=== PATIENT | male | born 1940 | race American Indian/Alaskan Native ===

== ENCOUNTER 2016-06-27 16:00 | Emergency (ER) | payer MEDICARE ==
[2016-06-27] MEDS ORDERED: ZOFRAN ODT ONE (17:46)
[2016-06-27] MEDS ORDERED: ZOFRAN ODT PO ONE (18:00)
[2016-06-27] MEDS: TYLENOL PO ONE (18:00)
[2016-06-27] MEDS ORDERED: ZOFRAN ODT PO PRN (18:00)
[2016-06-27 18:47] LABS: Hematocrit 44.1 % (35.5-45.6); Hemoglobin 13.9 gm/dl (11.8-15.2); Mean Corpuscular HGB Conc 32 % (32-34); Mean Corpuscular Hemoglobin 29 pg (28-32); Mean Corpuscular Volume 92 fl (84-94); Red Blood Count 4.81 M/mm3 (3.65-5.03); White Blood Count 20.8 K/mm3 (4.5-11.0)
[2016-06-27 18:48] LABS: Platelet Count 164 K/mm3 (140-440)
[2016-06-27 19:06] LABS: Anion Gap 20 mmol/L; BUN/Creatinine Ratio 10.76; Blood Urea Nitrogen 14 mg/dL (9-20); Calcium 8.5 mg/dL (8.4-10.2); Carbon Dioxide 20 mmol/L (22-30); Chloride 100.4 mmol/L (98-107); Glucose 132 mg/dL (75-100); Potassium 4.7 mmol/L (3.6-5.0); Sodium 136 mmol/L (137-145)
[2016-06-27 19:47] LABS: Basophils % (Manual) 0 % (0.0-1.8); Blastocytes % (Manual) 0 %; Eosinophils % (Manual) 0 % (0.0-4.3)
[2016-06-27 19:48] LABS: Ovalocytes Few
[2016-06-27 19:49] LABS: Diff Status Complete; Platelet Estimate Consistent w Auto
[2016-06-28 00:10] LABS: Bilirubin,Urine NEG (Negative); Blood,Urine MOD (Negative); Ketones,Urine TR mg/dL (Negative); Leukocyte Esterase,Urine NEG (Negative); Nitrite,Urine NEG (Negative); Urobilinogen,Urine < 2.0 mg/dL (<2.0)
--- NOTE | 2016-06-28 01:25 | Emergency Department Report ---
ED Abdominal Pain HPI - General Chief Complaint: Nausea/Vomiting/Diarrhea Stated Complaint: N/V Time Seen by Provider: 06/28/16 00:58 Source: patient Mode of arrival: Ambulatory Limitations: No Limitations - History of Present Illness Initial Comments: Patient is a 75-year-old male with a history of hypertension presenting to the ER with abdominal pain, fevers x 4 days and nausea, and vomiting for the past one day. As per patient and son at the bedside patient had a prostate biopsy to rule out prostate cancer 4 days ago. Pt also reports 1 day of intermittent CP in the left chest which started >8 hrs ago. Pt reports that has resolved. Otherwise no SOB, diarrhea, travel, rectal discharge, rectal pain, or sick contacts. Pt was given zofran while waiting to be seen and now has developed a pruitic rash over his abdomen and extremities. MD Complaint: abdominal pain, other (N/V) Severity scale (0 -10): 6 - Related Data Home Medications Medication Instructions Recorded Confirmed Last Taken Aspirin 81 mg PO DAILY 04/05/15 04/05/15 04/02/15 81 MG Lipase/Protease/Amylase [Pancreaze 1 each PO TID 04/06/15 04/06/15 04/02/15 4,200 Unit] 1 EACH Metformin HCl [Glucophage] 1,000 mg PO BID 04/06/15 04/06/15 04/02/15 1000 MG Pioglitazone HCl 15 mg PO QDAY 04/06/15 04/06/15 04/02/15 15 MG Pravastatin Sodium [Pravastatin] 40 mg PO QHS 04/06/15 04/06/15 04/02/15 40 MG Ranitidine HCl [Zantac 150 MG TAB] 150 mg PO BID 04/06/15 04/06/15 04/02/15 150 MG Previous Rx's Medication Instructions Recorded Last Taken Type Carvedilol [Coreg] 25 mg PO QDAY #90 tablet 07/01/13 04/02/15 Rx 25 MG amLODIPine [Norvasc] 5 mg PO DAILY #90 tab 07/01/13 04/02/15 Rx 5 MG diphenhydrAMINE [Benadryl CAP] 25 mg PO Q6HR PRN #12 capsule 06/28/16 Unknown Rx predniSONE [Deltasone] 50 mg PO QDAY #5 tab 06/28/16 Unknown Rx Allergies Allergy/AdvReac Type Severity Reaction Status Date / Time No Known Allergies Allergy Verified 06/28/13 07:27 ED Review of Systems ROS: Stated complaint: N/V Other details as noted in HPI Comment: All other systems reviewed and negative ED Past Medical Hx - Past Medical History Hx Hypertension: Yes Additional medical history: "fast heartbeat". 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" - Social History Smoking Status: Former Smoker Substance Use Type: None - Medications Home Medications: Home Medications Medication Instructions Recorded Confirmed Last Taken Type Carvedilol [Coreg] 25 mg PO QDAY #90 tablet 07/01/13 04/05/15 04/02/15 Rx 25 MG amLODIPine [Norvasc] 5 mg PO DAILY #90 tab 07/01/13 04/05/15 04/02/15 Rx 5 MG Aspirin 81 mg PO DAILY 04/05/15 04/05/15 04/02/15 History 81 MG Lipase/Protease/Amylase [Pancreaze 1 each PO TID 04/06/15 04/06/15 04/02/15 History 4,200 Unit] 1 EACH Metformin HCl [Glucophage] 1,000 mg PO BID 04/06/15 04/06/15 04/02/15 History 1000 MG Pioglitazone HCl 15 mg PO QDAY 04/06/15 04/06/15 04/02/15 History 15 MG Pravastatin Sodium [Pravastatin] 40 mg PO QHS 04/06/15 04/06/15 04/02/15 History 40 MG Ranitidine HCl [Zantac 150 MG TAB] 150 mg PO BID 04/06/15 04/06/15 04/02/15 History 150 MG diphenhydrAMINE [Benadryl CAP] 25 mg PO Q6HR PRN #12 capsule 06/28/16 Unknown Rx predniSONE [Deltasone] 50 mg PO QDAY #5 tab 06/28/16 Unknown Rx ED Physical Exam - General Limitations: No Limitations General appearance: alert, in no apparent distress - Head Head exam: Present: atraumatic, normocephalic - Eye Eye exam: Present: normal appearance - ENT ENT exam: Present: mucous membranes moist - Neck Neck exam: Present: normal inspection - Respiratory Respiratory exam: Present: normal lung sounds bilaterally. Absent: respiratory distress - Cardiovascular Cardiovascular Exam: Present: regular rate, normal rhythm. Absent: systolic murmur, diastolic murmur, rubs, gallop - GI/Abdominal GI/Abdominal exam: Present: soft, normal bowel sounds. Absent: distended, tenderness, guarding, rebound - Rectal Rectal exam: Present: normal inspection, normal rectal tone - Extremities Exam Extremities exam: Present: normal inspection - Back Exam Back exam: Present: normal inspection - Neurological Exam Neurological exam: Present: alert, oriented X3 - Psychiatric Psychiatric exam: Present: normal affect, normal mood - Skin Skin exam: Present: warm, dry, intact, rash (puritic rash to abdomen and extremities likely secondary to zofran) ED Course Vital Signs 06/27/16 06/28/16 06/28/16 17:42 00:26 02:24 Temperature 101.2 F H 99.5 F Pulse Rate 97 H 105 H Respiratory 16 18 Rate Blood Pressure 131/80 136/72 Blood Pressure [Left] O2 Sat by Pulse 100 97 95 Oximetry 06/28/16 06/28/16 06:17 06:51 Temperature 98.6 F Pulse Rate 80 71 Respiratory 16 17 Rate Blood Pressure Blood Pressure 117/57 135/78 [Left] O2 Sat by Pulse 100 99 Oximetry ED Medical Decision Making - Lab Data Result diagrams: 06/27/16 18:10 06/27/16 18:10 - EKG Data -: EKG Interpreted by Me ([id number]) EKG shows normal: sinus rhythm, axis (normal axis), intervals (1st degree AV block), ST-T waves ((-)ST T changes, No STEMI) Rate: normal (95 bpm) - EKG Data When compared to previous EKG there are: no significant change - Medical Decision Making Results discussed with patient, advised him to follow up with his urologist and to return to the ED if his sx worsen Repeat lactate: 1 Critical care attestation.: If time is entered above; I have spent that time in minutes in the direct care of this critically ill patient, excluding procedure time. ED Disposition Clinical Impression: Abdominal pain, Nausea & vomiting, Allergic reaction caused by a drug, Dehydration Disposition: DISCHARGED TO HOME OR SELFCARE Is pt being admited?: No Condition: Stable Instructions: Dehydration (ED), Acute Nausea and Vomiting (ED), Antibiotic Medication Allergy (ED), Abdominal Pain (ED) Prescriptions: diphenhydrAMINE [Benadryl CAP] 25 mg PO Q6HR PRN #12 capsule PRN Reason: Itching predniSONE [Deltasone] 50 mg PO QDAY #5 tab Referrals: PRIMARY CARE, [Primary Care Provider] - 3-5 Days
[2016-06-28] MEDS ORDERED: NACL ONE (01:28)
[2016-06-28] MEDS: NACL 0.9% 1000 ML 1,000 ML IV ONE ×2 (02:20→04:00)
[2016-06-28] MEDS: BENADRYL IV ONE (02:21)
--- NOTE | 2016-06-28 03:17 | Cat Scan Report ---
FINAL REPORT PROCEDURE: CT ABDOMEN PELVIS W CON TECHNIQUE: Computerized axial tomography of the abdomen and pelvis was performed after the IV injection of iodinated nonionic contrast. HISTORY: n/v x 2days prostate bx. 06-17-16 r/o abscess COMPARISON: No prior studies are available for comparison. FINDINGS: Visualized lower thorax: No significant abnormality. Liver: The liver is normal in size. There are numerous cystic lesions which are most likely benign. There is no solid liver lesion.. Spleen: Normal size and attenuation. Gallbladder and biliary system: Normal. Pancreas: Normal. Adrenals: Normal. Kidneys: There are multiple bilateral kidney cysts. There are no kidney stones or ureteral stones. There is no hydronephrosis.. GI tract: There is diverticulosis of the colon. There is no acute diverticulitis. The stomach, small bowel and appendix are normal.. Lymph nodes and mesentery: Normal. Vasculature: Normal. Bladder: Normal. Reproductive organs: Prostate gland is enlarged. There appears to have been a TURP. The prostate is heterogeneous but no discrete mass is seen. Nevertheless, prostate malignancy cannot be excluded. There is induration of the pelvic fat which is nonspecific. There are nodular densities in the pelvis measuring up to 8 millimeters. These could could be metastatic or reactive lymph nodes.. Peritoneum: There is no ascites or free air, or abscess. Musculoskeletal structures: No significant abnormality. Other: None. IMPRESSION: The liver is normal in size. There are numerous cystic lesions which are most likely benign. There is no solid liver lesion.. There are multiple bilateral kidney cysts. There are no kidney stones or ureteral stones. There is no hydronephrosis.. There is diverticulosis of the colon. There is no acute diverticulitis. The stomach, small bowel and appendix are normal.. Prostate gland is enlarged. There appears to have been a TURP. The prostate is heterogeneous but no discrete mass is seen. Nevertheless, prostate malignancy cannot be excluded. There is induration of the pelvic fat which is nonspecific. There are nodular densities in the pelvis measuring up to 8 millimeters. These could could be metastatic or reactive lymph nodes.. There is no ascites or free air, or abscess.
[2016-06-28 06:52] VITALS: BP 135/78
== END 2016-06-28 06:51 | disposition home or self-care (01) ==
LOC: ED 16:00
DX: R10.9 Unspecified abdominal pain (principal); R11.2 Nausea with vomiting, unspecified; E86.0 Dehydration; T50.905A Adverse effect of unspecified drugs, medicaments and biological substances, initial encounter; I10 Essential (primary) hypertension; Z87.891 Personal history of nicotine dependence; Z88.8 Allergy status to other drugs, medicaments and biological substances
CPT/HCPCS: 36415; 74177; 80048; 81001; 82140; 84484; 85007; 85025; 87040; 93005; 93010; 96361; 96374; 96375; 99284; J1200; J2930; J7030; Q9967; Q0162

== ENCOUNTER 2016-06-29 05:22 | Emergency (ER) | payer MEDICARE ==
--- NOTE | 2016-06-29 07:43 | Emergency Department Report ---
ED Allergic Reaction HPI - General Chief complaint: Allergic Reaction Stated complaint: POSS ALLERGIC REACTION Time Seen by Provider: 06/29/16 07:22 Source: patient Mode of arrival: Ambulatory Limitations: No Limitations - History of Present Illness Initial Comments: 75-year-old male with past medical history hypertension prostate enlargement presents with complaint of itchiness and hives status post taking dose of Zofran yesterday. Patient was seen in the ED for nausea given Zofran and experienced hives and itchiness afterward. Patient states that symptoms persisted despite being discharged with Benadryl and prednisone. Patient denies any shortness of breath, visible hives on arms and legs. Denies use of any new medication and Zofran and no other new medications for hypertension. Patient is calm awake alert and oriented 3 no respiratory distress and no stridor no wheezing on clinical exam. MD Complaint: allergic reaction Onset/Timin -: days(s) Exposure: medication Symptoms: rash, itching Severity: mild Treatment Prior to Arrival: benadryl, steroids Previous Allergy History: none - Related Data Home Medications Medication Instructions Recorded Confirmed Last Taken Aspirin 81 mg PO DAILY 04/05/15 04/05/15 04/02/15 81 MG Lipase/Protease/Amylase [Pancreaze 1 each PO TID 04/06/15 04/06/15 04/02/15 4,200 Unit] 1 EACH Metformin HCl [Glucophage] 1,000 mg PO BID 04/06/15 04/06/15 04/02/15 1000 MG Pioglitazone HCl 15 mg PO QDAY 04/06/15 04/06/15 04/02/15 15 MG Pravastatin Sodium [Pravastatin] 40 mg PO QHS 04/06/15 04/06/15 04/02/15 40 MG Ranitidine HCl [Zantac 150 MG TAB] 150 mg PO BID 04/06/15 04/06/15 04/02/15 150 MG Previous Rx's Medication Instructions Recorded Last Taken Type Carvedilol [Coreg] 25 mg PO QDAY #90 tablet 07/01/13 04/02/15 Rx 25 MG amLODIPine [Norvasc] 5 mg PO DAILY #90 tab 07/01/13 04/02/15 Rx 5 MG diphenhydrAMINE [Benadryl CAP] 25 mg PO Q6HR PRN #12 capsule 04/18/17 Unknown Rx predniSONE [Deltasone] 50 mg PO QDAY #5 tab 06/28/16 Unknown Rx Famotidine [Pepcid] 20 mg PO BID PRN #14 tablet 06/29/16 Unknown Rx Hydrocortisone 1% [Hydrocortisone 1 applicatio TP TID PRN #1 tube 06/29/16 Unknown Rx 1% CREAM] Hydroxyzine HCl 25 mg PO Q8H PRN #21 tablet 06/29/16 Unknown Rx Loratadine [Claritin] 10 mg PO DAILY #30 tablet 06/29/16 Unknown Rx Allergies Allergy/AdvReac Type Severity Reaction Status Date / Time zofran Allergy Hives Uncoded 06/29/16 06:07 ED Review of Systems ROS: Stated complaint: POSS ALLERGIC REACTION Other details as noted in HPI Constitutional: denies: chills, fever Eyes: denies: eye pain, eye discharge, vision change ENT: denies: ear pain, throat pain Respiratory: denies: cough, shortness of breath, wheezing Cardiovascular: denies: chest pain, palpitations Endocrine: no symptoms reported Gastrointestinal: denies: abdominal pain, nausea, diarrhea Genitourinary: denies: urgency, dysuria Musculoskeletal: denies: back pain, joint swelling, arthralgia Skin: rash, pruritus. denies: lesions Neurological: denies: headache, weakness, paresthesias Psychiatric: denies: anxiety, depression Hematological/Lymphatic: denies: easy bleeding, easy bruising ED Past Medical Hx - Past Medical History Hx Hypertension: Yes Additional medical history: "fast heartbeat". 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" - Social History Smoking Status: Former Smoker Substance Use Type: None - Medications Home Medications: Home Medications Medication Instructions Recorded Confirmed Last Taken Type Carvedilol [Coreg] 25 mg PO QDAY #90 tablet 07/01/13 04/05/15 04/02/15 Rx 25 MG amLODIPine [Norvasc] 5 mg PO DAILY #90 tab 07/01/13 04/05/15 04/02/15 Rx 5 MG Aspirin 81 mg PO DAILY 04/05/15 04/05/15 04/02/15 History 81 MG Lipase/Protease/Amylase [Pancreaze 1 each PO TID 04/06/15 04/06/15 04/02/15 History 4,200 Unit] 1 EACH Metformin HCl [Glucophage] 1,000 mg PO BID 04/06/15 04/06/15 04/02/15 History 1000 MG Pioglitazone HCl 15 mg PO QDAY 04/06/15 04/06/15 04/02/15 History 15 MG Pravastatin Sodium [Pravastatin] 40 mg PO QHS 04/06/15 04/06/15 04/02/15 History 40 MG Ranitidine HCl [Zantac 150 MG TAB] 150 mg PO BID 04/06/15 04/06/15 04/02/15 History 150 MG diphenhydrAMINE [Benadryl CAP] 25 mg PO Q6HR PRN #12 capsule 06/28/16 Unknown Rx predniSONE [Deltasone] 50 mg PO QDAY #5 tab 06/28/16 Unknown Rx Famotidine [Pepcid] 20 mg PO BID PRN #14 tablet 06/29/16 Unknown Rx Hydrocortisone 1% [Hydrocortisone 1 applicatio TP TID PRN #1 tube 06/29/16 Unknown Rx 1% CREAM] Hydroxyzine HCl 25 mg PO Q8H PRN #21 tablet 06/29/16 Unknown Rx Loratadine [Claritin] 10 mg PO DAILY #30 tablet 06/29/16 Unknown Rx ED Physical Exam - General Limitations: No Limitations General appearance: alert, in no apparent distress - Head Head exam: Present: atraumatic, normocephalic - Eye Eye exam: Present: normal appearance, PERRL, EOMI - ENT ENT exam: Present: mucous membranes moist - Neck Neck exam: Present: normal inspection - Respiratory Respiratory exam: Present: normal lung sounds bilaterally. Absent: respiratory distress - Cardiovascular Cardiovascular Exam: Present: regular rate, normal rhythm. Absent: systolic murmur, diastolic murmur, rubs, gallop - GI/Abdominal GI/Abdominal exam: Present: soft, normal bowel sounds - Rectal Rectal exam: Present: deferred - Extremities Exam Extremities exam: Present: normal inspection - Back Exam Back exam: Present: normal inspection - Neurological Exam Neurological exam: Present: alert, oriented X3, CN II-XII intact, normal gait - Psychiatric Psychiatric exam: Present: normal affect, normal mood - Skin Skin exam: Present: warm, dry, intact, normal color, urticaria (patient has mild hives on arms and legs,pt is scratchign his skin). Absent: rash ED Course Vital Signs 06/29/16 05:48 Temperature 98.7 F Blood Pressure 173/98 O2 Sat by Pulse 97 Oximetry ED Medical Decision Making - Medical Decision Making A/P: Allergic reaction possibly to medication 1-patient experienced significant relief of itching with Pepcid and hydroxyzine and Benadryl 2-I instructed patient to use Atarax and Pepcid for now to mitigate itching as he states that Benadryl and prednisone did not relieve the symptoms 3-follow-up with primary care doctor 4-no signs of angioedema oropharynx is patent, no signs of anaphylactic reaction on clinical exam or history 5- patient states he broke out in hives and itchiness immediately after taking Zofran, I instructed him to not take Zofran Critical care attestation.: If time is entered above; I have spent that time in minutes in the direct care of this critically ill patient, excluding procedure time. ED Disposition Clinical Impression: Drug-induced pruritus Disposition: DISCHARGED TO HOME OR SELFCARE Is pt being admited?: No Does the pt Need Aspirin: No Condition: Stable Instructions: Acute Rash (ED), Itchy Skin (ED), Antipruritic (On the skin), Antihistamine (By mouth) Prescriptions: Famotidine [Pepcid] 20 mg PO BID PRN #14 tablet PRN Reason: Itching Hydrocortisone 1% [Hydrocortisone 1% CREAM] 1 applicatio TP TID PRN #1 tube PRN Reason: Itching Hydroxyzine HCl 25 mg PO Q8H PRN #21 tablet PRN Reason: Itching Loratadine [Claritin] 10 mg PO DAILY #30 tablet Referrals: ZOHRA HUSSEIN MD [Referring] - 3-5 Days Forms: Work/School Release Form(ED) Time of Disposition: 10:45
[2016-06-29] MEDS: PEPCID PO ONE (07:56)
[2016-06-29] MEDS: ATARAX PO ONE (08:05)
[2016-06-29] MEDS: NACL 0.9% 500 ML 500 ML IV ONE (09:26)
[2016-06-29] MEDS: BENADRYL IV ONE (09:27)
[2016-06-29 10:54] VITALS: BP 138/81
== END 2016-06-29 11:02 | disposition home or self-care (01) ==
LOC: ED 05:22
DX: L29.9 Pruritus, unspecified (principal); I10 Essential (primary) hypertension; Z87.891 Personal history of nicotine dependence
CPT/HCPCS: 96361; 96374; 99282; J1200; J7040

== ENCOUNTER 2018-04-26 15:03 | Emergency (ER) | payer MEDICARE ==
[2018-04-26] MEDS ORDERED: NACL 0.9% 1000 ML 1,000 ML IV ONE (16:19)
--- NOTE | 2018-04-26 16:32 | Emergency Department Report ---
ED Syncope HPI - General Chief Complaint: Syncope Stated Complaint: SYNCOPAL EPISODE Time Seen by Provider: 04/26/18 16:06 - History of Present Illness Initial Comments: 77-year-old male, history of hypertension, presents to the ED following a syncopal episode at home. Patient reports he experienced dizziness, nausea, shortness of breath prior to passing out. Patient denies headache, chest pain or diarrhea. Patient reports URI symptoms consisting of cough and sneezing, for which he states he took Coricidin before the syncopal episode. Patient reports previous syncopal episodes in the past due to his blood pressure being low as a reslut of his blood pressure medication. Timing/Prior Episodes: single episode today Precipitating Factors: Positive: lightheadedness, nausea Context: standing Loss of Consciousness: brief (seconds) Current Symptoms: back to normal. denies: chest pain, headache, loss of bladder control, loss of bowel control - Related Data Allergies/Adverse Reactions: Allergies zofran Allergy (Uncoded 06/29/16 06:07) Hives Home Medications: Ambulatory Orders Aspirin 81 mg PO DAILY 04/05/15 Carvedilol [Coreg] 25 mg PO BID 04/26/18 amLODIPine [Norvasc] 10 mg PO DAILY 04/26/18 cloNIDine [Catapres] 0.1 tab PO Q12HR PRN 04/26/18 ED Review of Systems ROS: Stated complaint: SYNCOPAL EPISODE Other details as noted in HPI Comment: All other systems reviewed and negative Constitutional: denies: chills, fever Respiratory: cough, shortness of breath Cardiovascular: denies: chest pain Gastrointestinal: nausea, vomiting. denies: abdominal pain, diarrhea Neurological: denies: headache, weakness, numbness, paresthesias ED Past Medical Hx - Past Medical History Previous Medical History?: Yes Hx Hypertension: Yes Additional medical history: "fast heartbeat". 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" - Social History Smoking Status: Never Smoker Substance Use Type: None - Medications Home Medications: Home Medications Medication Instructions Recorded Confirmed Last Taken Type Aspirin 81 mg PO DAILY 04/05/15 04/26/18 04/02/15 History 81 MG Carvedilol [Coreg] 25 mg PO BID 04/26/18 04/26/18 Unknown History amLODIPine [Norvasc] 10 mg PO DAILY 04/26/18 04/26/18 Unknown History cloNIDine [Catapres] 0.1 tab PO Q12HR PRN 04/26/18 04/26/18 Unknown History ED Physical Exam - General Limitations: No Limitations General appearance: alert, in no apparent distress - Head Head exam: Present: atraumatic, normocephalic - Eye Eye exam: Present: normal appearance - ENT ENT exam: Present: mucous membranes moist - Respiratory Respiratory exam: Present: normal lung sounds bilaterally. Absent: respiratory distress - Cardiovascular Cardiovascular Exam: Present: regular rate, normal rhythm - GI/Abdominal GI/Abdominal exam: Present: soft. Absent: distended, tenderness - Extremities Exam Extremities exam: Present: normal inspection - Neurological Exam Neurological exam: Present: alert, oriented X3 - Psychiatric Psychiatric exam: Present: normal affect, normal mood - Skin Skin exam: Present: warm, dry, intact, normal color ED Course Vital Signs 04/26/18 04/26/18 04/26/18 15:25 15:41 19:59 Temperature 97.2 F L Pulse Rate 85 101 H Respiratory 20 20 18 Rate Blood Pressure 150/80 Blood Pressure 150/80 179/104 [Right] O2 Sat by Pulse 95 95 98 Oximetry 04/26/18 04/26/18 20:16 22:25 Temperature 100.2 F H Pulse Rate 97 H 85 Respiratory 21 18 Rate Blood Pressure 176/96 Blood Pressure 161/85 [Right] O2 Sat by Pulse 94 95 Oximetry ED Medical Decision Making - Lab Data Result diagrams: 04/26/18 16:51 04/26/18 16:51 - EKG Data -: EKG Interpreted by [facility] EKG shows normal: sinus rhythm, axis, intervals, QRS complexes, ST-T waves - EKG Data Interpretation: no acute changes - Radiology Data Radiology results: report reviewed, image reviewed - Medical Decision Making 77-year-old male presents to the ED following a syncopal episode. She reports URI symptoms for which he took Coricidin earlier today. Patient states after he took the medication and he became lightheaded and passed out. He states his called EMS. Patient reports this happened in the past his blood pressure medications. States he currently only takes blood pressure medicines as needed. States did not take his BP meds today, only the Coricidin. Workup unremarkable, including CTA chest. EKG is normal, troponin negative 2. Patient was orthostatic on arrival. Hypotension is listed as an adverse effect of Coricidin. IV fluids were given, BP normal. Patient did have low-grade temp of 100.2 and discharged, however WBC is normal, no evidence of pneumonia on chest x-ray or CT is, and UA normal. Fever likely due to viral URI. Tylenol given for this. Patient feeling much better following IV fluids. Will discharge at this time. Outpatient follow-up with PCP advice. Return precautions given. Patient advised to hold his coricidin. - Differential Diagnosis dehydration, arrythmia, PE, medication side effect Critical care attestation.: If time is entered above; I have spent that time in minutes in the direct care of this critically ill patient, excluding procedure time. ED Disposition Clinical Impression: Syncope, Dehydration Disposition: DC-01 TO HOME OR SELFCARE Is pt being admited?: No Condition: Stable Instructions: Syncope (ED) Referrals: PRIMARY CARE, [Primary Care Provider] - 3-5 Days Time of Disposition: 21:51
[2018-04-26 17:04] LABS: Hematocrit 46.4 % (35.5-45.6); Hemoglobin 14.9 gm/dl (11.8-15.2); Mean Corpuscular HGB Conc 32 % (32-34); Mean Corpuscular Volume 92 fl (84-94); Platelet Count 212 K/mm3 (140-440); Red Blood Count 5.02 M/mm3 (3.65-5.03); Red Cell Distribution Width 14.4 % (13.2-15.2)
--- NOTE | 2018-04-26 17:13 | XRay Report ---
FINAL REPORT EXAM: XR CHEST 1V AP HISTORY: syncope,HYPERTENSION TECHNIQUE: Frontal portable view of the chest Comparison: None FINDINGS: There is no evidence of focal infiltrate, pneumothorax or pleural fluid collection. The cardiac silhouette is normal size. The thoracic aorta is tortuous. The bony structures are unremarkable. Visualization detail of the thoracic spine is limited IMPRESSION: 1. No evidence of an acute pulmonary process.
[2018-04-26 17:16] LABS: INR 0.95 (0.87-1.13)
[2018-04-26 17:17] LABS: BUN/Creatinine Ratio 9; Blood Urea Nitrogen 11 mg/dL (9-20); Calcium 8.7 mg/dL (8.4-10.2); Hemolysis Index 12; Partial Thromboplastin Time 23.9 Sec. (24.2-36.6)
[2018-04-26 18:09] LABS: Band Neutrophils # (Manual) 0.2 K/mm3; Basophils % (Manual) 0 % (0.0-1.8); Total Cells Counted 100
[2018-04-26 18:10] LABS: RBC Morphology Normal
[2018-04-26 18:38] LABS: Bilirubin,Urine NEG (Negative); Blood,Urine NEG (Negative); Color,Urine Yellow (Yellow); Hyaline Casts,Urine 1 /LPF; Mucus,Urine FEW /HPF; Urobilinogen,Urine < 2.0 mg/dL (<2.0)
--- NOTE | 2018-04-26 20:08 | Cat Scan Report ---
FINAL REPORT PROCEDURE: CT ANGIO CHEST TECHNIQUE: Computerized tomographic angiography of the chest was performed after the IV injection of iodinated nonionic contrast including image processing. The image data was postprocessed using 2-dim ensional multiplanar reformatted (MPR) and 3-dimensional (MIP and/or volume rendered) techniques. HISTORY: syncope, elevated d-dimer COMPARISON: No prior studies are available for comparison. FINDINGS: Bilateral pulmonary arteries and their branches demonstrate normal opacification without filling defe cts. Aorta is of normal caliber without evidence of dissection. Hilar structures are within normal li mits. Thyroid demonstrates normal size and density. There is no lymphadenopathy. Visualized upper abd ominal structures are within normal limits. Vertebral height is normal. Bilateral lungs and pleural s paces are clear. IMPRESSION: No evidence of pulmonary embolism No acute pulmonary process
[2018-04-26] MEDS ORDERED: TYLENOL PO ONE (22:39)
[2018-04-26 22:41] VITALS: BP 161/85
== END 2018-04-26 23:13 | disposition home or self-care (01) ==
LOC: ED 15:03
DX: R55 Syncope and collapse (principal); E86.0 Dehydration
CPT/HCPCS: 36415; 71045; 71275; 80048; 81001; 84484; 85007; 85025; 85379; 85610; 85730; 93005; 93010; 96360; 99285; J7030; Q9967

== ENCOUNTER 2020-08-06 10:30 | Outpatient (CLI) | payer MEDICARE ==
[2020-08-06 12:26] LABS: Albumin 3.6 g/dL (3.9-5); C-Reactive Protein 0.6 mg/dL (0.00-1.30); Calcium 8.6 mg/dL (8.4-10.2)
[2020-08-10 04:13] LABS: Albumin 3.8 g/dL (3.8-4.8); Gamma Globulin 1.2 g/dL (0.8-1.7)
[2020-08-12 08:55] LABS: HIV-1 Antibody Differentiation SEE SCANNED RESULT; HIV-2 Antibody Differentiation SEE SCANNED RESULT
== END 2020-08-06 10:31 | disposition home or self-care (01) ==
LOC: LAB 10:30
PROVIDERS: ATTEND Specialist
DX: G61.9 Inflammatory polyneuropathy, unspecified (principal); A53.9 Syphilis, unspecified; E07.9 Disorder of thyroid, unspecified; I10 Essential (primary) hypertension; Z79.899 Other long term (current) drug therapy
CPT/HCPCS: 36415; 80053; 82607; 83036; 83921; 84165; 84443; 85652; 86140; 86334; 86592; 86689

== ENCOUNTER 2021-07-09 | Emergency (ER) | payer MEDICARE ==
[2021-07-09] MEDS ORDERED: SODIUM CHLORIDE 0.9% 1000 ML 1,000 ML IV ONE (00:19)
[2021-07-09 01:27] LABS: Hematocrit 48.7 % (35.5-45.6); Hemoglobin 15.8 gm/dl (11.8-15.2); Mean Corpuscular HGB Conc 33 % (32-34); Mean Corpuscular Volume 92 fl (84-94); Platelet Count 262 K/mm3 (140-440); Red Cell Distribution Width 13.9 % (13.2-15.2)
--- NOTE | 2021-07-09 03:50 | Emergency Department Report ---
ED General Adult HPI - General Chief complaint: Dizziness Stated complaint: DIZZINESS Time Seen by Provider: 07/09/21 00:16 Source: EMS Mode of arrival: Stretcher Limitations: No Limitations - History of Present Illness Initial comments: Who presents with dizziness. Patient eats once a day and he has been fasting since patient has no fever or chills no nausea or vomiting. He states that he just feels slightly lightheaded Severity scale (0 -10): 0 - Related Data Previous Rx's Medication Instructions Recorded Last Taken Type Apixaban [Eliquis] 2.5 mg PO Q12HR #60 tablet 10/04/19 Unknown Rx Aspirin 81 mg PO DAILY #30 10/04/19 Unknown Rx amLODIPine 10 mg PO DAILY #30 10/04/19 Unknown Rx carvediloL [Coreg] 25 mg PO BID #60 10/04/19 Unknown Rx cloNIDine [Catapres] 0.1 tab PO Q12HR PRN #60 10/04/19 Unknown Rx dexAMETHasone [Decadron] 6 mg PO DAILY #5 tablet 10/04/19 Unknown Rx Allergies Allergy/AdvReac Type Severity Reaction Status Date / Time zofran Allergy Hives Uncoded 06/29/16 06:07 ED Review of Systems ROS: Stated complaint: DIZZINESS Other details as noted in HPI Constitutional: denies: chills, fever Eyes: denies: eye pain, eye discharge, vision change ENT: denies: ear pain, throat pain Respiratory: denies: cough, shortness of breath, wheezing Cardiovascular: denies: chest pain, palpitations Endocrine: no symptoms reported Gastrointestinal: denies: abdominal pain, nausea, diarrhea Genitourinary: denies: urgency, dysuria Musculoskeletal: denies: back pain, joint swelling, arthralgia Skin: denies: rash, lesions Neurological: weakness. denies: headache, paresthesias Psychiatric: denies: anxiety, depression Hematological/Lymphatic: denies: easy bleeding, easy bruising ED Past Medical Hx - Past Medical History Previous Medical History?: No Hx Hypertension: Yes Hx Diabetes: Yes Additional medical history: "fast heartbeat". 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 Prostatectomy - Social History Smoking Status: Unknown if ever smoked Substance Use Type: None - Medications Home Medications: Home Medications Medication Instructions Recorded Confirmed Last Taken Type Apixaban [Eliquis] 2.5 mg PO Q12HR #60 tablet 10/04/19 Unknown Rx Aspirin 81 mg PO DAILY #30 10/04/19 Unknown Rx amLODIPine 10 mg PO DAILY #30 10/04/19 Unknown Rx carvediloL [Coreg] 25 mg PO BID #60 10/04/19 Unknown Rx cloNIDine [Catapres] 0.1 tab PO Q12HR PRN #60 10/04/19 Unknown Rx dexAMETHasone [Decadron] 6 mg PO DAILY #5 tablet 10/04/19 Unknown Rx ED Physical Exam - General Limitations: No Limitations General appearance: alert, in no apparent distress - Head Head exam: Present: atraumatic, normocephalic - Eye Eye exam: Present: normal appearance - ENT ENT exam: Present: mucous membranes moist - Neck Neck exam: Present: normal inspection - Respiratory Respiratory exam: Present: normal lung sounds bilaterally. Absent: respiratory distress - Cardiovascular Cardiovascular Exam: Present: regular rate, normal rhythm. Absent: systolic murmur, diastolic murmur, rubs, gallop - GI/Abdominal GI/Abdominal exam: Present: soft, normal bowel sounds - Rectal Rectal exam: Present: deferred - Extremities Exam Extremities exam: Present: normal inspection - Back Exam Back exam: Present: normal inspection - Neurological Exam Neurological exam: Present: alert, oriented X3 - Psychiatric Psychiatric exam: Present: normal affect, normal mood - Skin Skin exam: Present: warm, dry, intact, normal color. Absent: rash ED Course Vital Signs 07/09/21 07/09/21 07/09/21 00:01 01:39 01:53 Temperature 98.1 F 98.1 F Pulse Rate 83 70 Respiratory 18 16 Rate Blood Pressure 102/62 Blood Pressure 153/85 [Right] O2 Sat by Pulse 94 96 98 Oximetry ED Medical Decision Making - Lab Data Result diagrams: 07/09/21 00:45 07/09/21 00:45 Lab Results 07/09/21 07/09/21 07/09/21 Range/Units 00:45 00:45 00:45 WBC 6.4 (4.5-11.0) K/mm3 RBC 5.30 H (3.65-5.03) M/mm3 Hgb 15.8 H (11.8-15.2) gm/dl Hct 48.7 H (35.5-45.6) % MCV 92 (84-94) fl MCH 30 (28-32) pg MCHC 33 (32-34) % RDW 13.9 (13.2-15.2) % Plt Count 262 (140-440) K/mm3 Lymph % (Auto) [employer] [place] % (Auto) [employer] Eos % (Auto) [employer] Baso % (Auto) [employer] Lymph # (Auto) [employer] [place] # (Auto) [employer] Eos # (Auto) [employer] Baso # (Auto) [employer] Seg Neutrophils % [employer] Seg Neutrophils # [employer] Sodium 142 (137-145) mmol/L Potassium 4.3 (3.6-5.0) mmol/L Chloride 106.9 (98-107) mmol/L Carbon Dioxide 24 (22-30) mmol/L Anion Gap 15 mmol/L BUN 18 (9-20) mg/dL Creatinine 1.7 H (0.8-1.3) mg/dL Estimated GFR 47 ml/min BUN/Creatinine Ratio 11 % Glucose 91 (75-100) mg/dL Calcium 9.0 (8.4-10.2) mg/dL Troponin T < 0.010 (0.00-0.029) ng/mL - EKG Data -: EKG Interpreted by Me - EKG Data 07/09/21 04:00 EKG time 0: 27 rate 56 sinus bradycardia prolonged NH interval impression un remarkable EKG 07/09/21 04:03 - Medical Decision Making Chief medical diagnosis: Dehydration Differential medical diagnosis acute kidney injury, electrolyte abnormality I w ill get blood work IV fluids EKG and troponin and will reevaluate patient Patient's creatinine is slightly elevated at 1.7 I will give patient IV fluids discussed lab finding with patient he agrees with discharge home. Patient does not want to eat any food Critical care attestation.: If time is entered above; I have spent that time in minutes in the direct care of this critically ill patient, excluding procedure time. ED Disposition Clinical Impression: Dizziness Disposition: 01 HOME / SELF CARE / HOMELESS Is pt being admited?: No Does the pt Need Aspirin: No Condition: Stable Instructions: Dizziness, [id number] Referrals: DEBBIE BOWERS MD [Primary Care Provider] - 3-5 Days
[2021-07-09 04:27] VITALS: BP 152/88
--- NOTE | 2021-07-09 17:16 | Electrocardiograph Report ---
[facility] Test Date: 2021-07-09 Test Time: 00:27:02 Pat Name: KELLIE AMAYA Department: Room: Gender: M Account Collector: ANANT : 1940 Requested By: NASEEM PATEL Order Number: [id number] Reading MD: Stefano Waldron Measurements Intervals [place] Rate: 56 P: 15 KS: 257 QRS: -31 QRSD: 97 T: 50 QT: 432 QTc: 418 Interpretive Statements Sinus bradycardia Prolonged [place] interval Possible inferior infarct, old No previous ECG available for comparison Electronically Signed On 07-09-2021 17:16:06 EDT by Stefano Waldron
== END 2021-07-09 04:32 | disposition home or self-care (01) ==
LOC: ED
DX: R42 Dizziness and giddiness (principal); I10 Essential (primary) hypertension; E11.9 Type 2 diabetes mellitus without complications
CPT/HCPCS: 36415; 80048; 84484; 85025; 93005; 96360; 99284; J7030